=== PATIENT | female | born 1960 | race Caucasian/White ===

== ENCOUNTER 2022-12-04 13:01 | Inpatient (IN) | payer OTHER ==
[~2022-12-04] VITALS: Ht 165.1 cm; Wt 127.9 kg
[~2022-12-04 13:01] MED LIST: AMLO10TA80 PO
[2022-12-04] MEDS ORDERED: SODIUM CHLORIDE 0.9% 1000ML BAG (SEPSIS BOLUS) IV ONE (13:45)
[2022-12-04] MEDS ORDERED: MORPHINE SULFATE 4 MG/ML CPJ (NOT FOR IM USE) IV STA (13:54)
[2022-12-04] MEDS ORDERED: ONDANSETRON HCL 4MG/2ML INJ IV STA (13:54)
[2022-12-04 14:30] LABS: BASOPHILS % 0.8 % (0.0-2.0); EOSINOPHILS % 1.7 % (0.0-5.0); HEMATOCRIT. 36.3 % (36.0-48.0); HEMOGLOBIN. 11.9 g/dL (12.0-16.0); LYMPHOCYTES % 42.7 % (20.0-50.0); MEAN CORPUSCULAR HEMOGLOBIN 28.9 pg (28.0-32.0); MEAN CORPUSCULAR VOLUME 88.1 fL (81.0-99.0); MEAN PLATELET VOLUME 9.6 fl (7.4-10.4); MONOCYTES % 2.4 % (2.0-8.0); NEUTROPHILS % 52.4 % (40.0-76.0); PLATELET 143 x1000/uL (130-400); RED BLOOD CELL COUNT 4.11 mill/uL (4.2-5.4); RED CELL DISTRIBUTION WIDTH 17.4 % (11.6-14.6)
[2022-12-04 14:38] LABS: CHLORIDE 106 mEq/L (98-107)
[2022-12-04 14:41] LABS: INR 1.1; PARTIAL THROMBOPLASTIN TIME 25.4 sec (23.4-31.0); PROTHROMBIN TIME 11.3 sec (9.6-11.0)
[2022-12-04] MEDS ORDERED: PIPERACILLIN/TAZ 3.375G PREMIX 50 ML IV ONE (15:30)
[2022-12-04] MEDS ORDERED: VANCOMYCIN 1G PREMIX 200 ML IV ONE (15:30)
[2022-12-04] MEDS ORDERED: KCL 10MEQ/50ML PREMIX 50 ML IV ONE (16:45)
[2022-12-04] MEDS ORDERED: NALOXONE HCL 0.4MG/ML VIAL IV PRN (22:15)
[2022-12-04] MEDS: MORPHINE SULFATE 2 MG/ML CPJ (NOT FOR IM USE) IV PRN (23:19)
[2022-12-05] VITALS (7 sets, daily range): BP systolic 100–128; BP diastolic 53–89
[2022-12-05] MEDS: MORPHINE SULFATE 2 MG/ML CPJ (NOT FOR IM USE) IV PRN ×2 (05:05→17:15)
[2022-12-05] MEDS ORDERED: IPRATROPIUM/ALBUTEROL 0.5-3(2.5)MG/3ML NEB NEB PRN (10:00)
[2022-12-05] MEDS ORDERED: ACETAMINOPHEN 650MG SUPP PR PRN (10:00)
[2022-12-05] MEDS: BLOOD SUGAR DIAGNOSTIC STRIP TEST SCH ×3 (10:00→21:09)
[2022-12-05] MEDS: INSULIN LISPRO 100 UNITS/ML SUBCUT SCH ×3 (10:00→21:14)
[2022-12-05] MEDS ORDERED: DEXTROSE 50% WATER 50ML SYRINGE IV PRN (10:00)
[2022-12-05] MEDS ORDERED: ONDANSETRON HCL 4MG/2ML INJ IV PRN (10:00)
[2022-12-05] MEDS ORDERED: PIPERACILLIN/TAZ 3.375G PREMIX 50 ML IV NR (10:30)
[2022-12-05] MEDS ORDERED: IPRATROPIUM BROMIDE (0.02%) 0.5MG/2.5ML NEB HHN PRN (10:45)
[2022-12-05] MEDS ORDERED: ALBUTEROL (0.083%) 2.5MG/3ML NEB HHN PRN (10:45)
[2022-12-05] MEDS ORDERED: ENOXAPARIN 30MG/0.3ML SYR SUBCUT SCH (11:00)
[2022-12-05] MEDS: PANTOPRAZOLE SODIUM 40 MG/VIAL IV SCH (11:49)
[2022-12-05] MEDS: DEXT 5%/0.45% NACL 1000ML 1,000 ML IV SCH (11:50)
[2022-12-05 12:08] LABS: BASOPHILS % 0.2 % (0.0-2.0); HEMATOCRIT. 29.2 % (36.0-48.0); HEMOGLOBIN. 9.6 g/dL (12.0-16.0); LYMPHOCYTES % 10.2 % (20.0-50.0); MEAN CORPUSCULAR HEMOGLOBIN 28.8 pg (28.0-32.0); MEAN CORPUSCULAR VOLUME 87.2 fL (81.0-99.0); MEAN PLATELET VOLUME 9.6 fl (7.4-10.4); MONOCYTES % 5.8 % (2.0-8.0); NEUTROPHILS % 83.8 % (40.0-76.0); PLATELET 80 x1000/uL (130-400); RED BLOOD CELL COUNT 3.35 mill/uL (4.2-5.4)
[2022-12-05 12:34] LABS: CHLORIDE 110 mEq/L (98-107)
[2022-12-05] MEDS ORDERED: MAGNESIUM 2 G PREMIX 50 ML IV NR (16:00)
[2022-12-05 16:45] LABS: CREATINE KINASE MB FRACTION 2.6 ng/mL (0.5-3.6)
[2022-12-05] MEDS ORDERED: PIPERACILLIN/TAZOBACTAM 3.375 G in DEXTROSE 5% WATER 50 ML IV SCH (21:00)
[2022-12-05 23:27] LABS: CREATINE KINASE MB FRACTION 2.4 ng/mL (0.5-3.6)
[2022-12-06] VITALS (10 sets, daily range): BP systolic 101–141; BP diastolic 58–85
[2022-12-06] MEDS ORDERED: MEROPENEM-0.9% SODIUM CHLORIDE 50 ML IV SCH
[2022-12-06] MEDS: DEXT 5%/0.45% NACL 1000ML 1,000 ML IV SCH ×3 (00:16→23:38)
[2022-12-06] MEDS: BLOOD SUGAR DIAGNOSTIC STRIP TEST SCH ×4 (03:20→21:36)
[2022-12-06] MEDS: INSULIN LISPRO 100 UNITS/ML SUBCUT SCH ×4 (03:21→21:36)
[2022-12-06] MEDS: MORPHINE SULFATE 2 MG/ML CPJ (NOT FOR IM USE) IV PRN (06:15)
[2022-12-06 06:47] LABS: BASOPHILS % 0.1 % (0.0-2.0); EOSINOPHILS % 0.1 % (0.0-5.0); HEMATOCRIT. 29.5 % (36.0-48.0); HEMOGLOBIN. 9.7 g/dL (12.0-16.0); LYMPHOCYTES % 8.3 % (20.0-50.0); MEAN CORPUSCULAR HEMOGLOBIN 29.1 pg (28.0-32.0); MEAN CORPUSCULAR VOLUME 88.7 fL (81.0-99.0); MEAN PLATELET VOLUME 9.8 fl (7.4-10.4); MONOCYTES % 4.6 % (2.0-8.0); NEUTROPHILS % 86.9 % (40.0-76.0); PLATELET 86 x1000/uL (130-400); RED BLOOD CELL COUNT 3.33 mill/uL (4.2-5.4); RED CELL DISTRIBUTION WIDTH 16.7 % (11.6-14.6)
[2022-12-06 06:49] LABS: CHLORIDE 111 mEq/L (98-107)
[2022-12-06 07:02] LABS: HDL CHOLESTEROL 28 mg/dL (40-59); LDL CHOLESTEROL 93 mg/dL (5-100)
[2022-12-06] MEDS: PANTOPRAZOLE SODIUM 40 MG/VIAL IV SCH (09:00)
[2022-12-06] MEDS: MEROPENEM 1000MG in NORMAL SALINE 100ML IV SCH ×2 (11:09→21:37)
[2022-12-06] MEDS: LORAZEPAM 2MG/ML CPJ IV PRN (23:50)
[2022-12-07] VITALS (14 sets, daily range): BP systolic 108–153; BP diastolic 61–96
[2022-12-07] MEDS: INSULIN LISPRO 100 UNITS/ML SUBCUT SCH ×4 (04:00→22:19)
[2022-12-07] MEDS: BLOOD SUGAR DIAGNOSTIC STRIP TEST SCH ×4 (04:16→22:16)
[2022-12-07] MEDS: MORPHINE SULFATE 2 MG/ML CPJ (NOT FOR IM USE) IV PRN ×2 (05:39→20:35)
[2022-12-07] MEDS: PANTOPRAZOLE SODIUM 40 MG/VIAL IV SCH (09:32)
[2022-12-07] MEDS: MEROPENEM 1000MG in NORMAL SALINE 100ML IV SCH ×2 (09:37→22:14)
[2022-12-07] MEDS: DEXT 5%/0.45% NACL 1000ML 1,000 ML IV SCH (15:20)
[2022-12-07 18:31] LABS: CARCINO EMBRYONIC ANTIGEN 3.3 ng/ml
[2022-12-07 18:43] LABS: HEPATITIS B SURFACE ANTIGEN NEGATIVE
[2022-12-08] VITALS (12 sets, daily range): BP systolic 120–148; BP diastolic 67–88
[2022-12-08] MEDS: ACETAMINOPHEN 325MG TABLET PO PRN (01:09)
[2022-12-08] MEDS ORDERED: VANCOMYCIN 1.25GM PMX (XELLIA) 250 ML IV SCH (03:00)
[2022-12-08] MEDS: INSULIN LISPRO 100 UNITS/ML SUBCUT SCH ×4 (03:34→21:05)
[2022-12-08] MEDS: BLOOD SUGAR DIAGNOSTIC STRIP TEST SCH ×4 (03:34→21:07)
[2022-12-08 06:48] LABS: HEMATOCRIT. 27.6 % (36.0-48.0); HEMOGLOBIN. 9.3 g/dL (12.0-16.0); MEAN CORPUSCULAR HEMOGLOBIN 28.9 pg (28.0-32.0); MEAN CORPUSCULAR VOLUME 85.9 fL (81.0-99.0); MEAN PLATELET VOLUME 8.7 fl (7.4-10.4); PLATELET 97 x1000/uL (130-400); RED BLOOD CELL COUNT 3.21 mill/uL (4.2-5.4); RED CELL DISTRIBUTION WIDTH 16.6 % (11.6-14.6)
[2022-12-08] MEDS: PANTOPRAZOLE SODIUM 40 MG/VIAL IV SCH (08:05)
[2022-12-08] MEDS ORDERED: SODIUM BICARBONATE 4% (2.4MEQ) 5ML VIAL IV ONE (08:54)
[2022-12-08] MEDS ORDERED: LIDOCAINE HCL 1% 10 MG/ML 10ML VIAL ONE (08:54)
[2022-12-08] MEDS ORDERED: LIDOCAINE HCL 1% 30ML VIAL (10MG/ML) ONE (09:09)
[2022-12-08] MEDS: MEROPENEM 1000MG in NORMAL SALINE 100ML IV SCH ×2 (10:50→21:02)
[2022-12-08 11:21] LABS: PLATELET ESTIMATE DECREASED
[2022-12-08] MEDS ORDERED: POTASSIUM CHLORIDE 20MEQ/PACKET PO NR (11:45)
[2022-12-08] MEDS: MORPHINE SULFATE 2 MG/ML CPJ (NOT FOR IM USE) IV PRN (13:55)
[2022-12-08] MEDS: DEXT 5%/0.45% NACL 1000ML 1,000 ML IV SCH ×2 (14:21→17:08)
[2022-12-08] MEDS: VANCOMYCIN 1G PREMIX 200 ML IV SCH (21:02)
[2022-12-08] MEDS: LORAZEPAM 2MG/ML CPJ IV PRN (21:18)
[2022-12-09] VITALS (9 sets, daily range): BP systolic 91–138; BP diastolic 59–91
[2022-12-09] MEDS: INSULIN LISPRO 100 UNITS/ML SUBCUT SCH ×4 (04:00→21:57)
[2022-12-09] MEDS: BLOOD SUGAR DIAGNOSTIC STRIP TEST SCH ×4 (04:00→21:57)
[2022-12-09] MEDS: DEXT 5%/0.45% NACL 1000ML 1,000 ML IV SCH (08:09)
[2022-12-09 08:42] LABS: BASOPHILS % 0.5 % (0.0-2.0); EOSINOPHILS % 1.1 % (0.0-5.0); HEMATOCRIT. 27.9 % (36.0-48.0); HEMOGLOBIN. 9.4 g/dL (12.0-16.0); LYMPHOCYTES % 16.1 % (20.0-50.0); MEAN CORPUSCULAR VOLUME 86.1 fL (81.0-99.0); MEAN PLATELET VOLUME 8.4 fl (7.4-10.4); MONOCYTES % 14.9 % (2.0-8.0); NEUTROPHILS % 67.4 % (40.0-76.0); PLATELET 104 x1000/uL (130-400); RED BLOOD CELL COUNT 3.25 mill/uL (4.2-5.4); RED CELL DISTRIBUTION WIDTH 16.3 % (11.6-14.6)
[2022-12-09] MEDS: PANTOPRAZOLE SODIUM 40 MG/VIAL IV SCH (08:48)
[2022-12-09 09:01] LABS: CHLORIDE 103 mEq/L (98-107)
[2022-12-09] MEDS: MEROPENEM 1000MG in NORMAL SALINE 100ML IV SCH ×2 (11:32→21:29)
[2022-12-09 12:43] LABS: BG BASE EXCESS -0.2 mmol/L (-2.0-2.0); BG DEOXYHEMOGLOBIN 3.4 % (0.0-5.0); BG FRACTION INSPIRED OXYGEN 32; BG HCO3 ACT 23.4 mmol/L (22.0-26.0); BG METHEMOGLOBIN 0.3 % (0.0-1.5); BG OXYGEN SATURATION 96.6 % (92.0-98.5); BG OXYHEMOGLOBIN 96.3 % (94.0-97.0); BG PCO2 34.1 mmHg (35.0-45.0); BG PH 7.455 (7.350-7.450); BG PO2 86.5 mmHg (75.0-100.0); BG SAMPLE SITE LEFT BRACHIAL; BG TOTAL HEMOGLOBIN 9.7 g/dL (12.0-18.0); BG VENT MODE NASAL CANNULA
[2022-12-09] MEDS: MORPHINE SULFATE 2 MG/ML CPJ (NOT FOR IM USE) IV PRN (13:14)
[2022-12-09] MEDS ORDERED: FUROSEMIDE 40MG/4ML VIAL IVP NR (13:30)
[2022-12-09] MEDS: VANCOMYCIN 1G PREMIX 200 ML IV SCH (15:07)
[2022-12-09] MEDS: ACETAMINOPHEN 325MG TABLET PO PRN (21:46)
[2022-12-10] VITALS: BP 104/73
[2022-12-10 04:00] VITALS: BP 121/81
[2022-12-10] MEDS: INSULIN LISPRO 100 UNITS/ML SUBCUT SCH ×2 (04:00→09:24)
[2022-12-10] MEDS: BLOOD SUGAR DIAGNOSTIC STRIP TEST SCH ×2 (04:00→09:18)
[2022-12-10 06:52] LABS: BASOPHILS % 0.6 % (0.0-2.0); EOSINOPHILS % 3.6 % (0.0-5.0); HEMOGLOBIN. 9.8 g/dL (12.0-16.0); LYMPHOCYTES % 17.6 % (20.0-50.0); MEAN CORPUSCULAR HEMOGLOBIN 28.7 pg (28.0-32.0); MEAN CORPUSCULAR VOLUME 84.6 fL (81.0-99.0); MEAN PLATELET VOLUME 8.6 fl (7.4-10.4); MONOCYTES % 14.2 % (2.0-8.0); PLATELET 125 x1000/uL (130-400); RED BLOOD CELL COUNT 3.43 mill/uL (4.2-5.4); RED CELL DISTRIBUTION WIDTH 16.5 % (11.6-14.6)
[2022-12-10 07:41] LABS: CHLORIDE 99 mEq/L (98-107)
[2022-12-10 08:00] VITALS: BP 138/88
[2022-12-10] MEDS: PANTOPRAZOLE SODIUM 40 MG/VIAL IV SCH (09:04)
[2022-12-10] MEDS: MEROPENEM 1000MG in NORMAL SALINE 100ML IV SCH (09:05)
[2022-12-10] MEDS: DEXT 5%/0.45% NACL 1000ML 1,000 ML IV SCH ×2 (09:05→09:13)
[2022-12-10] MEDS ORDERED: POTASSIUM CHLORIDE 20MEQ TABLET SR PO SCH (11:00)
[2022-12-10 11:56] LABS: BG BASE EXCESS -1.3 mmol/L (-2.0-2.0); BG CARBOXYHEMOGLOBIN 0.1 % (0.5-1.5); BG DEOXYHEMOGLOBIN 5.8 % (0.0-5.0); BG FRACTION INSPIRED OXYGEN 21; BG HCO3 ACT 21.6 mmol/L (22.0-26.0); BG METHEMOGLOBIN 0.3 % (0.0-1.5); BG OXYGEN SATURATION 94.2 % (92.0-98.5); BG OXYHEMOGLOBIN 93.8 % (94.0-97.0); BG PCO2 30.3 mmHg (35.0-45.0); BG PH 7.471 (7.350-7.450); BG PO2 69.5 mmHg (75.0-100.0); BG SAMPLE SITE LEFT BRACHIAL; BG TOTAL HEMOGLOBIN 11.1 g/dL (12.0-18.0); BG VENT MODE ROOM AIR
[2022-12-10 12:00] VITALS: BP 117/78
[2022-12-10] MEDS ORDERED: LACTULOSE 20G/30ML UDC PO NR (13:15)
[2022-12-10] MEDS: ACETAMINOPHEN 325MG TABLET PO PRN (13:31)
[2022-12-10] MEDS ORDERED: LEVO-65 MT (13:40)
[2022-12-10] MEDS ORDERED: METR-167 MT (13:40)
[2022-12-10 15:10] VITALS: BP 117/78
[2022-12-10] MEDS ORDERED: LACTULOSE 20G/30ML UDC PO PRN (21:00)
== END 2022-12-10 16:45 | disposition home health service (06) | DRG 871 ==
LOC: ER 13:01 → MICUSO 18:19 → 5EST 12-05 10:25
PROVIDERS: ADMIT Internal Medicine; ATTEND Internal Medicine
PROC: 0W9G3ZZ Drainage of Peritoneal Cavity, Percutaneous Approach (ICD-10-PCS; principal; 2022-12-08)
DX: A41.50 Gram-negative sepsis, unspecified (principal); K65.2 Spontaneous bacterial peritonitis; N17.9 Acute kidney failure, unspecified; Z68.42 Body mass index [BMI] 45.0-49.9, adult; K80.00 Calculus of gallbladder with acute cholecystitis without obstruction; Z20.822 Contact with and (suspected) exposure to COVID-19; K74.60 Unspecified cirrhosis of liver; R77.8 Other specified abnormalities of plasma proteins; D69.6 Thrombocytopenia, unspecified; E87.6 Hypokalemia; I25.10 Atherosclerotic heart disease of native coronary artery without angina pectoris; E78.5 Hyperlipidemia, unspecified; E66.9 Obesity, unspecified; D64.9 Anemia, unspecified; K42.9 Umbilical hernia without obstruction or gangrene; K57.30 Diverticulosis of large intestine without perforation or abscess without bleeding; E11.9 Type 2 diabetes mellitus without complications; R74.01 Elevation of levels of liver transaminase levels; Z79.1 Long term (current) use of non-steroidal anti-inflammatories (NSAID); Z87.19 Personal history of other diseases of the digestive system; Z90.49 Acquired absence of other specified parts of digestive tract
CPT/HCPCS: 36415; 36600; 49083; 71045; 74176; 76705; 78227; 80048; 80053; 80061; 80076; 80202; 82040; 82105; 82140; 82375; 82378; 82550; 82553; 82805; 82962; 83605; 83615; 83735; 83880; 84145; 84443; 84484; 85025; 86301; 86705; 86709; 86803; 86850; 86900; 87076; 87340; 87426; 88108; 93005; 93306; 93970; 97162; 97530; 99291; A9537; C1893; C9113; J1815; J1940; J2060; J2185; J2270; J2405; J2543; J3370; J3475; J3480; J3490; J7030; J7060